=== PATIENT | male | born 1965 | race Caucasian/White ===

== ENCOUNTER 2017-09-27 15:12 | Emergency (ER) | payer SELFPAY ==
--- NOTE | 2017-09-27 15:32 | EDPHY ---
H & P HPI/ROS: CHIEF COMPLAINT: Suicidal ideations HISTORY OF PRESENT ILLNESS: The patient is a 52 y/o male with a history of depression and anxiety arriving via EMS for suicidal ideations. 1.5 weeks ago he arrived in [place] from [place] after his house was [place] in [place]. He was unable to find a job and subsequently became suicidal. He was hospitalized last week in the psychiatric department of [facility]. He followed up with the Crisis Center in [place] this week. He went to a career center today and was unable to find a job. After this he felt like he had no purpose in life or anywhere to go. Takes Zoloft and Gabapentin as prescribed. Denies homicidal ideations. Denies recent fever, cough, shortness of breath or other pertinent symptoms. REVIEW OF SYSTEMS: Aside from elements discussed in the HPI, a comprehensive 10-point review of systems was reviewed and is negative. (Kassy Ruano) Past Medical/Surgical History: Anxiety, depression, left leg skin graft (Kassy Ruano) Social History: Homeless (Kassy Ruano) Physical Exam: General Appearance: Alert, pleasant, sad Eyes: Pupils equal and round, conjunctival injection ENT, Mouth: Mucous membranes moist Neck: Normal inspection Respiratory: Lungs are clear to auscultation Cardiovascular: Regular rate and rhythm Gastrointestinal: Abdomen is soft and non-tender Neurological: A&O, nonfocal Skin: Warm and dry, no rash Extremities: Nontender, no pedal edema Psychiatric: sad, tearful (Kassy Ruano) Constitutional: Initial Vital Signs Temperature (C) 36.5 C 09/27/17 15:24 Heart Rate 86 09/27/17 15:24 Respiratory Rate 16 09/27/17 15:24 Blood Pressure 154/112 H 09/27/17 15:24 O2 Sat (%) 96 09/27/17 15:24 O2 Delivery Mode Room Air Allergies/Adverse Reactions: Penicillins Allergy (Verified 09/27/17 15:24) Home Medications: Medication Instructions Recorded Gabapentin [Neurontin 300 MG (*)] 300 mg PO BID 09/27/17 Sertraline HCl [Zoloft 100mg (*)] 100 mg PO DAILY 09/27/17 diphenhydrAMINE [Benadryl 25 MG 25 mg PO HS PRN 09/27/17 (*)] Medical Decision Making ED Course/Re-evaluation: Re-evaluation 11:00 p.m.. Patient is sleeping with the TV on. He has had a mental health evaluation. He is awaiting disposition (Raymond Lopez) The patient is a 52 y/o male with a history of depression and anxiety arriving via EMS for suicidal ideations. On exam he is tearful and sad. Mental health evaluation ordered. Labs ordered. Medically cleared for mental health evaluation. Signed over to Dr. Lopez at shift change, mental health evaluation pending. (Kassy Ruano) Care Turn Over: Care to at 2300 (Raymond Lopez) 2300 care assumed by me from Dr. Lopez is pending placement 0230 patient has been accepted to [facility] by Dr. Corona. I have completed the EMTALA. (Sreedhar Ivy) - Data Points Laboratory Results: Laboratory Results 09/27/17 15:45 09/27/17 15:45 Medications Given: Discontinued Medications Acetaminophen (Tylenol) 1,000 mg PO EDNOW ONE Stop: 09/28/17 01:06 Last Admin: 09/28/17 01:08 Dose: 1,000 mg Departure - Departure Disposition: Other Psych, Not [place] Clinical Impression: Suicidal ideation Condition: Fair Referrals: Patient,NotPresent [Primary Care Provider] - As per Instructions Report Scribed for: Kassy Ruano Report Scribed by: Vijaya Mercado Date of Report: 09/27/17 Time of Report: 15:27 Physician Review and Approval Statement: 09/27/17 15:27 Portions of this note were transcribed by a medical center manager. I personally performed a history, physical exam, medical decision making, and confirmed accuracy of information the transcribed note. (Kassy Ruano)
[2017-09-27 15:53] LABS: PLATELET COUNT 290 10^3/uL (150-400)
[2017-09-28 01:03] VITALS: BP 143/90; PULSE 61; RESP 16; TEMP 97.7; O2SAT 93
[2017-09-28] MEDS ORDERED: ACETAMINOPHEN 500 MG TAB PO ONE (01:05)
[2017-09-28] MEDS ORDERED: ACETAMINOPHEN 500 MG TAB ONE (01:06)
== END 2017-09-28 03:30 ==
DX: R45.851 Suicidal ideations (principal)
CPT/HCPCS: 80305; G0480

== ENCOUNTER 2017-10-12 01:43 | Emergency (ER) | payer MEDICAID ==
[2017-10-12] MEDS ORDERED: NS 1,000 ML IV ONE (01:50)
[2017-10-12 01:53] VITALS: TEMP 98.6
--- NOTE | 2017-10-12 01:54 | CPEKG ---
Heart Rate: 79 RR Interval: 759 P-R Interval: 172 QRSD Interval: 100 QT Interval: 412 QTC Interval: 473 P Wilmont: 41 QRS Wilmont: 0 T Wave Wilmont: 58 EKG Severity - OTHERWISE NORMAL ECG - EKG Impression: SINUS ARRHYTHMIA, RATE 63-93 Electronically Signed By: Kassy Ruano 12-Oct-2017 21:45:40
--- NOTE | 2017-10-12 01:57 | EDPHY ---
H & P HPI/ROS: HPI CHIEF COMPLAINT: Abdominal pain HISTORY OF PRESENT ILLNESS: Patient very pleasant 52-year-old male, he resides at a local homeless intermediate presents emergency room with right upper quadrant and epigastric abdominal pain that woke from sleep approximately an hour and half ago. Additionally he states that he had a left huseyin nose bleed. Patient denies any chest pain or shortness of breath he does complain of pain in his right upper quadrant epigastric region that is now resolved. Describes sharp stabbing. He states he has had this intermittently over the past 6 months. Upon arrival to the emergency room is hemodynamically stable no acute distress he denies chest or shortness of breath denies fever denies recent illness. Denies vomiting. Past Medical History: Anxiety, frequent nose bleeds Past Surgical History: Denies recent surgery. Social History:THC use. Homeless. Family History: Noncontributory ROS REVIEW OF SYSTEMS: A comprehensive 10 point review of systems is otherwise negative aside from elements mentioned in the history of present illness. Exam Constitutional appears well nontoxic no acute distress triage nursing summary reviewed, vital signs reviewed, awake/alert. Eyes normal conjunctivae and sclera, EOMI, PERRLA. HENT normal inspection, atraumatic, moist mucus membranes, no epistaxis, neck supple/ no meningismus, no raccoon eyes. Respiratory clear to auscultation bilaterally, normal breath sounds, no respiratory distress, no wheezing. Cardiovascular rate normal, regular rhythm, no murmur, no edema, distal pulses normal. Gastrointestinal I really can't elicit any abdominal pain on exam specifically no right upper quadrant epigastric pain, soft, non-tender, no rebound, no guarding, normal bowel sounds, no distension, no pulsatile mass. Genitourinary no CVA tenderness. Musculoskeletal no midline vertebral tenderness, full range of motion, no calf swelling, no tenderness of extremities, no meningismus, good pulses, neurovascularly intact. Skin pink, warm, & dry, no rash, skin atraumatic. Neurologic awake, alert and oriented x 3, AAOx3, moves all 4 extremities equally, motor intact, sensory intact, CN II-XII intact, normal cerebellar, normal vision, normal speech. Psychiatric normal mood/affect. Heme/Lymph/Immune no lymphadenopathy. Differential diagnosis includes but is not limited to and in no particular order : Bowel obstruction, appendicitis, gallbladder disease, diverticulitis, colitis , enteritis, perforated viscus, gastritis, GERD, esophagitis, urinary tract infection, pyelonephritis, kidney stones Medical Decision Making: Plan for this patient EKG, capacity planner, IV establishment blood draw, check troponin, ultrasound right upper quadrant to rule out cholecystitis gallbladder disease, most likely presentation is consistent with gallbladder disease versus gastritis. Doubt cardiac presentation given no chest pain or shortness of breath. Patient complains of right upper quadrant pain over the past 6 months. Re-evaluation: EKG interpretation by me on record in [facility] system. Impression time of EKG 1:47 a.m., sinus rhythm rate of 79 no acute ischemic changes specifically no ST elevation no ST depression no T-wave abnormalities. Unremarkable EKG. Ultrasound of the right upper quadrant. The results of the study are negative for acute cholecystitis or gallbladder disease. I discussed the results of this study with the radiologist Dr. Griggs 0330AM: I did re-evaluate the patient at this time. He is sleeping. I did wake him he states he has no complaints he denies chest pain shortness of breath or abdominal pain. His workup here in emergency room is been unremarkable. He has a nonischemic EKG and negative troponin and unremarkable ultrasound unremarkable chest x-ray and blood work that is reassuring. He states he has been resting comfortably here in sleeping. I discussed about discharging with him he is comfortable being discharged. He denies any further complaints. I do recommend he refrain from eating fatty greasy foods that may be causing some gallbladder contraction giving his right upper quadrant pain I have no indication he is having a cardiac event. He is comfortable this plan. I discussed return precautions with him he understands return emergency room if develops worsening abdominal pain fever vomiting. Repeat Trop Negative. Source: Patient, EMS - Medical/Surgical History Hx Asthma: No Hx Chronic Respiratory Disease: No Hx Diabetes: No Hx Cardiac Disease: No Hx Renal Disease: No Hx Cirrhosis: No Hx Alcoholism: No Hx HIV/AIDS: No Hx Splenectomy or Spleen Trauma: No Other PMH: just dc from [facility] last week/skin grafts l leg - Social History Smoking Status: Never smoked Constitutional: Initial Vital Signs Temperature (C) 37.0 C 10/12/17 01:50 Heart Rate 79 10/12/17 01:50 Respiratory Rate 15 10/12/17 01:50 Blood Pressure 155/110 H 10/12/17 01:50 O2 Sat (%) 97 10/12/17 01:50 O2 Delivery Mode Room Air Allergies/Adverse Reactions: Penicillins Allergy (Verified 10/12/17 01:50) Home Medications: Medication Instructions Recorded Gabapentin [Neurontin 300 MG (*)] 300 mg PO BID 09/27/17 Sertraline HCl [Zoloft 100mg (*)] 100 mg PO DAILY 09/27/17 diphenhydrAMINE [Benadryl 25 MG 25 mg PO HS PRN 09/27/17 (*)] Medical Decision Making - Data Points Laboratory Results: Laboratory Results 10/12/17 01:45 10/12/17 01:45 10/12/17 10/12/17 10/12/17 03:50 02:15 01:45 WBC RBC Hgb Hct MCV MCH MCHC RDW Plt Count MPV Neut % (Auto) Lymph % (Auto) Sharp % (Auto) Eos % (Auto) Baso % (Auto) Nucleat RBC Rel Count Absolute Neuts (auto) Absolute Lymphs (auto) Absolute Monos (auto) Absolute Eos (auto) Absolute Basos (auto) Absolute Nucleated RBC Immature Gran % Immature Gran # PT 13.2 SEC SEC (12.0-15.0) INR 0.98 (0.83-1.16) APTT 32.3 SEC SEC (23.0-38.0) Sodium 144 mEq/L mEq/L (135-145) Potassium 4.4 mEq/L mEq/L (3.5-5.2) Chloride 107 mEq/L mEq/L (97-110) Carbon Dioxide 23 mEq/l mEq/l (22-31) Anion Gap 14 mEq/L mEq/L (8-16) BUN 17 mg/dL mg/dL (7-23) Creatinine 0.9 mg/dL mg/dL (0.7-1.3) Estimated GFR > 60 Glucose 96 mg/dL mg/dL (70-100) Calcium 9.9 mg/dL mg/dL (8.5-10.4) Magnesium 2.0 mg/dL mg/dL (1.6-2.3) Total Bilirubin 0.3 mg/dL mg/dL (0.1-1.4) Conjugated Bilirubin 0.2 mg/dL mg/dL (0.0-0.5) Unconjugated Bilirubin 0.1 mg/dL mg/dL (0.0-1.1) AST 39 IU/L IU/L (17-59) ALT 55 IU/L IU/L (21-72) Alkaline Phosphatase 83 IU/L IU/L (38-126) Creatine Kinase 145 IU/L IU/L (0-224) CK-MB (CK-2) Fraction 2.00 ng/mL ng/mL (0.00-3.19) Troponin I 0.015 ng/mL ng/mL 0.016 ng/mL ng/mL (0.000-0.034) (0.000-0.034) NT-Pro-B Natriuret Pep 146 pg/mL H pg/mL (0-125) Total Protein 7.0 g/dL g/dL (6.3-8.2) Albumin 4.0 g/dL g/dL (3.5-5.0) Lipase 133 IU/L IU/L (23-300) 10/12/17 10/12/17 01:45 01:45 WBC 6.68 10^3/uL 10^3/uL (3.80-9.50) RBC 5.17 10^6/uL 10^6/uL (4.40-6.38) Hgb 15.6 g/dL g/dL (13.7-17.5) Hct 45.9 % % (40.0-51.0) MCV 88.8 fL fL (81.5-99.8) MCH 30.2 pg pg (27.9-34.1) MCHC 34.0 g/dL g/dL (32.4-36.7) RDW 14.3 % % (11.5-15.2) Plt Count 272 10^3/uL 10^3/uL (150-400) MPV 10.1 fL fL (8.7-11.7) Neut % (Auto) 64.5 % % (39.3-74.2) Lymph % (Auto) 23.8 % % (15.0-45.0) Sharp % (Auto) 7.6 % % (4.5-13.0) Eos % (Auto) 3.7 % % (0.6-7.6) Baso % (Auto) 0.3 % % (0.3-1.7) Nucleat RBC Rel Count 0.0 % % (0.0-0.2) Absolute Neuts (auto) 4.30 10^3/uL 10^3/uL (1.70-6.50) Absolute Lymphs (auto) 1.59 10^3/uL 10^3/uL (1.00-3.00) Absolute Monos (auto) 0.51 10^3/uL 10^3/uL (0.30-0.80) Absolute Eos (auto) 0.25 10^3/uL 10^3/uL (0.03-0.40) Absolute Basos (auto) 0.02 10^3/uL 10^3/uL (0.02-0.10) Absolute Nucleated RBC 0.00 10^3/uL 10^3/uL (0-0.01) Immature Gran % 0.1 % % (0.0-1.1) Immature Gran # 0.01 10^3/uL 10^3/uL (0.00-0.10) PT REJ INR REJ APTT REJ Sodium Potassium Chloride Carbon Dioxide Anion Gap BUN Creatinine Estimated GFR Glucose Calcium Magnesium Total Bilirubin Conjugated Bilirubin Unconjugated Bilirubin AST ALT Alkaline Phosphatase Creatine Kinase CK-MB (CK-2) Fraction Troponin I NT-Pro-B Natriuret Pep Total Protein Albumin Lipase Medications Given: Discontinued Medications Sodium Chloride (Ns) 1,000 mls @ 0 mls/hr IV EDNOW ONE; Wide Open PRN Reason: Protocol Stop: 10/12/17 01:51 Last Admin: 10/12/17 01:59 Dose: 1,000 mls Departure - Departure Disposition: Home, Routine, Self-Care Clinical Impression: Abdominal pain Qualifiers: Abdominal location: right upper quadrant Qualified Code(s): R10.11 - Right upper quadrant pain Condition: Good Instructions: Acute Abdominal Pain (ED) Additional Instructions: 1. Return emergency room if develops worsening abdominal pain fever or vomiting. Referrals: NONE *PRIMARY CARE P,. [Primary Care Provider] - As per Instructions
[2017-10-12 02:04] LABS: PLATELET COUNT 272 10^3/uL (150-400)
[2017-10-12 02:16] LABS: CREATINE KINASE 145 IU/L (0-224)
[2017-10-12 02:44] LABS: INR 0.98 (0.83-1.16); PROTIME(PATIENT) 13.2 SEC (12.0-15.0)
[2017-10-12 06:25] VITALS: BP 155/99; PULSE 76; RESP 16; O2SAT 94
== END 2017-10-12 06:25 | disposition home or self-care (01) ==
LOC: EDUNIT#
DX: R10.11 Right upper quadrant pain (principal); E86.9 Volume depletion, unspecified

== ENCOUNTER 2018-08-16 12:48 | Observation (INO) | payer MEDICAID ==
[2018-08-16] MEDS ORDERED: LR 1,000 ML IV ONE (13:42)
[2018-08-16] MEDS ORDERED: ceFAZolin 2 GM/DEXTROSE 100 ML IV ONE (14:58)
--- NOTE | 2018-08-16 15:11 | PDHPUP ---
History & Physical Update H&P update statement: This history and physical update is based on an assessment of the patient which was completed after admission or registration (within 24 hours), but prior to the surgery/procedure. H&P update: H&P reviewed & patient examined, no change in patient's condition since H&P completed
[2018-08-16] MEDS ORDERED: MIDAZOLAM 2 MG/2 ML VIAL IVP ONE (16:13)
--- NOTE | 2018-08-16 16:14 | PDANEPAE ---
ANE History of Present Illness bilateral inguinal hernia ANE Past Medical History - Cardiovascular History Hx Hypertension: Yes Hx Arrhythmias: No Hx Chest Pain: No Hx Coronary Artery / Peripheral Vascular Disease: No Hx CHF / Valvular Disease: No Hx Palpitations: No Cardiovascular History Comment: pcp monitors bp medications - Pulmonary History Hx COPD: No Hx Asthma/Reactive Airway Disease: No Hx Recent Upper Respiratory Infection: No Hx Oxygen in Use at Home: No Hx Sleep Apnea: No Sleep Apnea Screening Result - Last Documented: Negative - Neurologic History Hx Cerebrovascular Accident: No Hx Seizures: No Hx Dementia: No - Endocrine History Hx Diabetes: No Hypothyroid: No Hyperthyroid: No Obesity: no - Renal History Hx Renal Disorders: No - Liver History Hx Hepatic Disorders: No - Neurological & Psychiatric Hx Hx Neurological and Psychiatric Disorders: No - Cancer History Hx Cancer: No - Congenital Disorder History Hx Congenital Disorders: No - GI History Hx Gastrointestinal Disorders: No - Other Health History Other Health History: wears glasses - Chronic Pain History Chronic Pain: No - Surgical History Prior Surgeries: appy. leg graft. tonsillectomy ANE Review of Systems Review of systems is: negative Review of Systems: - Exercise capacity METS (RN): 4 METS ANE Patient History - Allergies Allergies/Adverse Reactions: Penicillins Allergy (Verified 08/15/18 12:43) Unknown - Home Medications Home medications: home medication list seen and reviewed Home Medications: Lisinopril [Zestril 10 mg (*)] 10 mg PO DAILY 08/15/18 [Last Taken 08/15/18] - NPO status NPO Since - Liquids (Date): 08/16/18 NPO Since - Liquids (Time): 12:00 NPO Since - Solids (Date): 08/16/18 NPO Since - Solids (Time): 06:00 - Anes Hx Anes Hx: no prior problems - Smoking Hx Smoking Status: Never smoked - Alcohol Use Alcohol Use: None - Family Anes Hx Family Hx Anesthesia Complications: none ANE Labs/Vital Signs - Vital Signs Blood Pressure: 149/94 Heart Rate: 97 Respiratory Rate: 18 O2 Sat (%): 94 Height: 193.04 cm Weight: 113.398 kg ANE Physical Exam - Airway Neck exam: FROM Mallampati Score: Class 2 Mouth exam: normal dental/mouth exam - Pulmonary Pulmonary: no respiratory distress - Cardiovascular Cardiovascular: regular rate and rhythym - ASA Status ASA Status: II ANE Anesthesia Plan Anesthesia Plan: general endotracheal anesthesia Specialized Airway: video laryngoscope
[2018-08-16] MEDS ORDERED: LIDOCAINE 1% 300 MG/30 ML SDV ONE (16:19)
[2018-08-16] MEDS ORDERED: BUPIVACAINE 0.5% 30 ML SDV ONE (16:19)
[2018-08-16] MEDS ORDERED: fentaNYL 100 MCG/2 ML INJ ONE ×3 (16:22→18:32)
[2018-08-16] MEDS ORDERED: PROPOFOL 200 MG/20 ML VIAL ONE ×2 (16:23→16:46)
[2018-08-16] MEDS ORDERED: ROCURONIUM 50 MG/5 ML VIAL ONE ×2 (16:26→17:50)
[2018-08-16] MEDS ORDERED: DEXAMETHASONE 4 MG/ML VIAL ONE (16:26)
[2018-08-16] MEDS ORDERED: ONDANSETRON 4 MG/2 ML VIAL ONE ×2 (16:27→18:23)
[2018-08-16] MEDS ORDERED: KETOROLAC 30 MG/1 ML SDV ONE (16:27)
--- NOTE | 2018-08-16 16:37 | POSTOPPROG ---
Post Op Note Date of Operation: 08/16/18 Surgeon: Kirk Roberts Special Needs Nanny: none Anesthesiologist: Olga Anesthesia: GET(General Endotracheal) Pre-op Diagnosis: B/L IH Post-op Diagnosis: same Procedure: Lap b/l tep inguinal herniorrhaphy with 3-d max mesh Inf/Abcess present in the surg proc area at time of surgery?: No
[2018-08-16] MEDS ORDERED: METOCLOPRAMIDE 10 MG/2 ML VIAL IVP PRN ×2 (16:41→17:09)
[2018-08-16] MEDS ORDERED: ONDANSETRON 4 MG/2 ML VIAL IVP PRN ×2 (16:41→17:09)
[2018-08-16] MEDS ORDERED: TEMAZEPAM 15 MG CAP PO PRN (16:41)
[2018-08-16] MEDS ORDERED: MAGNESIUM HYDROXIDE 30 ML UDCUP PO PRN (16:41)
[2018-08-16] MEDS ORDERED: LIDOCAINE 2% 5 ML SDV ONE (16:42)
[2018-08-16] MEDS ORDERED: SUGAMMADEX SODIUM 200 MG/2 ML VIAL IVP ONE (16:58)
[2018-08-16] MEDS ORDERED: LR 1,000 ML IV SCH (17:00)
--- NOTE | 2018-08-16 17:07 | POSTANESTH ---
Post Anesthetic Evaluation Cardiovascular Status: Normal, Stable Respiratory Status: Normal, Stable Level of Consciousness/Mental Status: Can Participate in Eval, Mildly Sleepy, Arousable Pain Control: Adequate, Prn Tx Ordered Nausea/Vomiting Control: Adequate, Prn Tx Ordered Complications Possibly Related to Anesthesia: None Noted
[2018-08-16] MEDS ORDERED: ALBUTEROL 3 ML DEYVIAL IH PRN (17:09)
[2018-08-16] MEDS ORDERED: LR 500 ML IV PRN (17:09)
[2018-08-16] MEDS ORDERED: oxyCODONE IR 5 MG TAB PO PRN (17:09)
[2018-08-16] MEDS ORDERED: HYDROCODONE/APAP 5/325 TAB PO PRN (17:09)
[2018-08-16] MEDS ORDERED: DIAZEPAM 5 MG/ML 1 ML SYR IVP PRN (17:09)
[2018-08-16] MEDS ORDERED: PROMETHAZINE HCL 25 MG/ML INJ IVP PRN (17:09)
[2018-08-16] MEDS ORDERED: ACETAMINOPHEN 500 MG TAB PO PRN (17:09)
[2018-08-16] MEDS ORDERED: NALOXONE HCL 0.4 MG/ML INJ IVP PRN (17:09)
[2018-08-16] MEDS: KETOROLAC 15 MG/1 ML SDV IVP SCH ×2 (18:27→23:49)
[2018-08-16] MEDS ORDERED: HYDROmorphONE/DILAUDID 2 MG/ML INJ ONE (18:32)
[2018-08-16] MEDS ORDERED: METOCLOPRAMIDE 10 MG/2 ML VIAL ONE (18:32)
[2018-08-16] MEDS: fentaNYL 100 MCG/2 ML INJ IVP PRN ×2 (18:34→18:44)
[2018-08-16] MEDS: HYDROmorphONE/DILAUDID 2 MG/ML INJ IVP PRN ×5 (18:37→19:22)
[2018-08-16] MEDS ORDERED: KETOROLAC 15 MG/1 ML SDV ONE (19:16)
[2018-08-16] MEDS: HYDROCODONE/APAP 5/325 TAB PO PRN (20:23)
[2018-08-17] MEDS: HYDROCODONE/APAP 5/325 TAB PO PRN ×2 (04:19→08:23)
[2018-08-17] MEDS: KETOROLAC 15 MG/1 ML SDV IVP SCH ×2 (06:11→12:08)
--- NOTE | 2018-08-17 06:21 | GOP ---
DATE OF OPERATION: SURGEON: Kirk Roberts MD ANESTHESIA: General endotracheal anesthesia. ANESTHESIOLOGIST: Dr. Papo Espinoza. PREOPERATIVE DIAGNOSIS: Bilateral inguinal hernia, left greater than right. POSTOPERATIVE DIAGNOSIS: Bilateral inguinal hernia, left greater than right. PROCEDURE PERFORMED: Laparoscopic bilateral TEP (total extraperitoneal approach) inguinal hernia rep air with 3DMax mesh. FINDINGS: ESTIMATED BLOOD LOSS: 10 mL. INDICATIONS: A 53-year-old gentleman with symptomatic left and a small right inguinal hernia here fo r bilateral inguinal hernia repair with mesh. DESCRIPTION OF PROCEDURE: Patient was brought to the operating room. After induction of endotrachea l anesthesia in the supine position, his abdomen was prepped with chlorhexidine and draped sterilely. Time-out procedure was performed according to institutional standards. Local anesthetic was infused in skin and subcutaneous tissue of the trocar sites and open preperitone al trocar placement was done on the left. He had a previous retroperitoneal incision on the right an d this had a lot of scar tissue, which did not allow complete dissection of the preperitoneal space. The working trocars were put in the lower midline under direct visualization. Blunt dissection was used to dissect out the inguinal space on the left and then the right. The righ t has a small indirect hernia and a larger direct component. The hernias are completely reduced and a mesh is interposed between the defect and the peritoneum. On the left side, a much larger hernia sac goes all the way down to the scrotum. This is taken down with blunt dissection. Tedious dissection is made. Hemostasis was assured. The 3DMax mesh was then unfolded between the hernia defect and the peritoneum on that side as well. After insuring good apposition to the abdominal wall, the air was deflated. Working trocars were rem carmen. The fascia was reapproximated using 0 Vicryl at the level of the fascia. All port sites were approxi mated at the skin level using 4 Monocryl. Dermabond was applied. The patient awakened, extubated, taken to the recovery room in stable condition. No immediate compli cations. /[id number]/MODL
--- NOTE | 2018-08-17 08:47 | ASMTCMCOM ---
CM Note CM Note Notes: Patient medically cleared for discharge no needs identified. Cm available should needs arise. Plan: Dc to home independently. Date Signed: 08/17/2018 08:46 AM Electronically Signed By:Orquidea Bashir RN
--- NOTE | 2018-08-17 08:51 | ASMTLACE ---
LACE Length of stay for Answers: Less than 1 day current admission Acuity / Level of Answers: No Care: Did the patient have an inpatient admission? # of Emergency department Answers: 0 visits in the last 6 months Social determinants Answers: Lack of community resources and/or lack of social support (no pcp, lives alone, transportation, sharda d) Score: 4 Date Signed: 08/17/2018 08:51 AM Electronically Signed By:Orquidea Bashir RN
[2018-08-17] MEDS ORDERED: LISINOPRIL 10 MG TAB PO SCH (09:00)
--- NOTE | 2018-08-17 09:21 | SOAPPROG ---
SOAP Progress Note Assessment/Plan: Assessment:no overnight events. pain controlled. avss. comfortable. incisions clean. doing well. to hotel today. f/u as scheduled. Plan: 08/17/18 09:19 Objective: Vital Signs Temp Pulse Resp BP Pulse Ox 36.6 C 67 16 148/96 H 95 08/17/18 07:47 08/17/18 07:47 08/17/18 07:47 08/17/18 08:23 08/17/18 07:47 08/16/18 08/17/18 08/18/18 05:59 05:59 05:59 Intake Total 1875 Output Total 15 Balance 1860 ICD10 Worksheet Patient Problems: Problems Problem Status Onset Hernia Acute - ICD10 Problem Qualifiers (1) Hernia
--- NOTE | 2018-08-17 10:01 | ASMTCMCOM ---
CM Note CM Note Notes: Apparently, hotel respite stay arranged by Soraya [facility] [place] [facility]. CM to provide him with taxi voucher for transportation to hotel where he has two days respite. CM available should other needs arise. Plan: As above. Date Signed: 08/17/2018 10:00 AM Electronically Signed By:Orquidea Bashir RN
--- NOTE | 2018-08-17 10:51 | ASMTCMCOM ---
CM Note CM Note Notes: Discharge Planning: This CM spoke with Soraya at [facility] regarding reserved respite bed at [facility] in [facility] for 08/17, and 08/18. Hotel has been secured and paid for by Soraya. This CM provided taxi voucher #[id number] to M[facility]IE [facility] for patient's transport to hot at discharge. I have LM with Soraya at [facility] to confirm follow through with D/C plan Date Signed: 08/17/2018 10:50 AM Electronically Signed By:Josefina Toro RN
[2018-08-17 12:07] VITALS: BP 154/82
== END 2018-08-17 12:29 | disposition home or self-care (01) ==
LOC: F3E 12:48 → F1N 20:00
PROVIDERS: ADMIT Surgery; ATTEND Surgery
PROC: 0YUA4JZ Supplement Bilateral Inguinal Region with Synthetic Substitute, Percutaneous Endoscopic Approach (ICD-10-PCS; principal; 2018-08-16 15:45)
DX: K40.20 Bilateral inguinal hernia, without obstruction or gangrene, not specified as recurrent (principal); M10.9 Gout, unspecified; I10 Essential (primary) hypertension; G62.9 Polyneuropathy, unspecified; Z88.0 Allergy status to penicillin
CPT/HCPCS: 49650; G0378; C1727; C1781; J0690; J1100; J1170; J1885; J2250; J2270; J2405; J2704; J2765; J3010